=== PATIENT | male | born 2000 | race Caucasian/White ===

== ENCOUNTER 2023-11-10 10:28 | Outpatient (OUT) | payer BC, SELFPAY ==
[2023-11-10 11:01] LABS: Basophils Percent Auto 0.4 % (0.2-2.0); Eosinophils Absolute Auto 0.1 10^3/uL (0.0-0.7); Eosinophils Percent Auto 1.2 % (0.9-7.0); Hematocrit 42.2 % (42.0-54.0); Hemoglobin 13.6 g/dL (14.0-18.0); Immature Granulocytes Abs Auto 0.01 10^3/uL (0.00-0.03); Immature Granulocytes Pct Auto 0.2 % (0.0-0.5); Lymphocytes Absolute Auto 1.7 10^3/uL (1.2-3.8); Lymphocytes Percent Auto 30.8 % (20.5-60.0); Mean Corpuscular HGB Conc 32.2 g/dL (29.9-35.2); Mean Corpuscular Volume 93.2 fL (80.0-94.0); Mean Platelet Volume 9.7 fL (9.5-13.5); Monocytes Absolute Auto 0.5 10^3/uL (0.3-0.8); Monocytes Percent Auto 8.9 % (1.7-12.0); Neutrophils Absolute Auto 3.3 10^3/uL (1.4-6.5); Neutrophils Percent Auto 58.5 % (43.0-75.0); Platelet Count 285 10^3/uL (150-450); Red Blood Count 4.53 10^6/uL (4.70-6.10); Red Cell Distribution Width 12.4 % (11.0-15.0); White Blood Count 5.6 10^3/uL (4.0-11.0)
[2023-11-10 12:09] LABS: Anion Gap 11.5; BUN Creatinine Ratio 16.5; Calcium 8.9 mg/dL (8.5-10.1); Carbon Dioxide 27.9 mmol/L (21.0-32.0); Chloride 104 mmol/L (98-107); Estimated GFR (African America >60 (>=60); Estimated GFR (Non-African Ame >60 (>=60); Glucose 92 mg/dL (74-106); Potassium 4.4 mmol/L (3.5-5.1); Sodium 139 mmol/L (136-145); Thyroid Stimulating Hormone 0.936 uIU/mL (0.358-3.740)
== END 2023-11-10 10:29 | disposition home or self-care (01) ==
LOC: LAB 10:35
PROVIDERS: PCP Family Medicine; Visit Provider Family Medicine
DX: R53.83 Other fatigue (principal)
CPT/HCPCS: 36415; 80048; 84443; 85025

== ENCOUNTER 2024-10-26 10:43 | Outpatient (OUT) | payer BC, SELFPAY ==
[2024-10-26 11:49] LABS: Basophils Absolute Auto 0.1 10^3/uL (0.0-0.1); Basophils Percent Auto 0.5 % (0.2-2.0); Eosinophils Absolute Auto 0.1 10^3/uL (0.0-0.7); Hematocrit 46.6 % (42.0-54.0); Hemoglobin 15.4 g/dL (14.0-18.0); Immature Granulocytes Abs Auto 0.04 10^3/uL (0.00-0.03); Immature Granulocytes Pct Auto 0.4 % (0.0-0.5); Lymphocytes Absolute Auto 2.5 10^3/uL (1.2-3.8); Lymphocytes Percent Auto 25.3 % (20.5-60.0); Mean Corpuscular Hemoglobin 30.3 pg (25.9-34.0); Mean Corpuscular Volume 91.6 fL (80.0-94.0); Mean Platelet Volume 9.8 fL (9.5-13.5); Monocytes Absolute Auto 0.9 10^3/uL (0.3-0.8); Monocytes Percent Auto 8.7 % (1.7-12.0); Neutrophils Absolute Auto 6.3 10^3/uL (1.4-6.5); Neutrophils Percent Auto 64.1 % (43.0-75.0); Platelet Count 326 10^3/uL (150-450); Red Blood Count 5.09 10^6/uL (4.70-6.10); Red Cell Distribution Width 12.6 % (11.0-15.0); White Blood Count 9.8 10^3/uL (4.0-11.0)
[2024-10-26 12:35] LABS: Anion Gap 13.4; BUN Creatinine Ratio 11.4; Calcium 9.1 mg/dL (8.5-10.1); Carbon Dioxide 29.2 mmol/L (21.0-32.0); Chloride 102 mmol/L (98-107); Estimated GFR (African America >60 (>=60 mL/min/1.73m^2); Estimated GFR (Non-African Ame >60 (>=60 mL/min/1.73m^2); Glucose 96 mg/dL (74-106); Potassium 4.6 mmol/L (3.5-5.1); Sodium 140 mmol/L (136-145); TSH W/ REFLEX FT4 1.273 uIU/mL (0.358-3.740)
== END 2024-10-26 10:44 | disposition home or self-care (01) ==
PROVIDERS: PCP Family Medicine; Visit Provider Family Medicine
DX: Z00.00 Encounter for general adult medical examination without abnormal findings (principal); R53.83 Other fatigue
CPT/HCPCS: 36415; 80048; 84443; 85025

== ENCOUNTER 2025-02-15 10:31 | Outpatient (OUT) | payer BC, SELFPAY ==
[2025-02-15 11:01] LABS: Hematocrit 45.5 % (42.0-54.0); Hemoglobin 15.3 g/dL (14.0-18.0); Immature Granulocytes Abs Auto 0.01 10^3/uL (0.00-0.03); Immature Granulocytes Pct Auto 0.2 % (0.0-0.5); Lymphocytes Absolute Auto 1.7 10^3/uL (1.2-3.8); Mean Corpuscular HGB Conc 33.6 g/dL (29.9-35.2); Mean Corpuscular Hemoglobin 30.7 pg (25.9-34.0); Mean Corpuscular Volume 91.2 fL (80.0-94.0); Platelet Count 269 10^3/uL (150-450); Red Blood Count 4.99 10^6/uL (4.70-6.10); White Blood Count 6.4 10^3/uL (4.0-11.0)
[2025-02-15 11:31] LABS: Anion Gap 9.4; Blood Urea Nitrogen 14.0 mg/dL (7.0-18.0); Calcium 9.2 mg/dL (8.5-10.1); Carbon Dioxide 32.8 mmol/L (21.0-32.0); Chloride 105 mmol/L (98-107); Estimated GFR (African America >60 (>=60 mL/min/1.73m^2); Estimated GFR (Non-African Ame >60 (>=60 mL/min/1.73m^2); Glucose 102 mg/dL (74-106); Potassium 4.2 mmol/L (3.5-5.1); Sodium 143 mmol/L (136-145); TSH W/ REFLEX FT4 1.861 uIU/mL (0.358-3.740)
== END 2025-02-15 10:32 | disposition home or self-care (01) ==
LOC: LAB 10:33
PROVIDERS: PCP Family Medicine; Visit Provider Family Medicine
DX: R53.83 Other fatigue (principal)
CPT/HCPCS: 36415; 80048; 84402; 84403; 84443; 85025

== ENCOUNTER 2025-03-02 13:38 | Emergency (ER) | payer BC, SELFPAY ==
[2025-03-02] VITALS (19 sets, daily range): BP systolic 112–141; BP diastolic 70–87; PULSE 62–93; TEMP 36.8; O2SAT 97–100; BMI 35.4
--- NOTE | 2025-03-02 14:03 | ED.GENADUL1 ---
HPI HPI - General Adult General Chief complaint: Weakness Stated complaint: FAST HEART RATE Time Seen by Provider: 03/02/25 13:47 Source: patient and family (mother) Mode of arrival: walk-in Limitations: no limitations History of Present Illness HPI narrative: 24-year-old male presents to the emergency department with mother with complaint of left lower chest/rib discomfort, shortness of breath, fatigue and malaise. Majority of symptoms onset this past Friday. Today, while at work, bent over to cotton picker something, became near syncopal, felt like his heart was racing. Mother believes he has long-term COVID due to decreased sense of smell. He has had some recent congestion, yellow nasal drainage. Denies headache, known fevers. No modifying factors association with the chest pain. Currently denies any. Denies any recent travel, cigarette smoking, lower extremity swelling or pain. Quality:?as above Severity:?moderate Timing:?as above Context: Normal setting and activity? Modifying factors:?none Associated symptoms: as above Related Data Previous Rx's ?Medication ?Instructions ?Recorded ibuprofen 600 mg tablet 600 mg PO Q8H PRN pain #20 tabs 03/02/25 tizanidine 4 mg capsule 4 mg PO BID PRN spasm #14 caps 03/02/25 Allergies Allergy/AdvReac Type Severity Reaction Status Date / Time No Known Drug Allergies Allergy Verified 03/02/25 13:52 Opioid HPI Opioid Management Most Recent Opioid Data: Last Pain Scale 4 Today, 13:45 Review of Systems ROS Narrative CONST: +fatigue. Denies fever, chills HENT: + nasal drainage. Denies congestion, sore throat RESP: + shortness of breath. Denies cough CV: + chest pain, heart racing today GI: Denies abd pain, nausea, vomiting MS: Denies back pain, myalgias SKIN: Denies color change, rash NEURO: Denies numbness, weakness PSYCHIATRIC: Denies confusion PFSH PFSH Social History Little interest or pleasure in doing things: not at all Feeling down, depressed, or hopeless: not at all Exam Narrative Exam Narrative: Vital signs reviewed Nurses notes noted CONST: Nontoxic, well appearing, well nourished, in no distress.? No diaphoresis.?? HENT: normocephalic, atraumatic, moist mucous membrane, no abnormalities of the nose noted, hearing normal EYES: normal appearing conjunctiva, no apparent discharge bilat NECK: normal appearance CV: normal rate, regular rhythm, no murmur RESP: normal effort, speaking in complete sentences. Lung sounds clear and equal bilat.? No wheezes, rales, rhonchi GI: soft, no distension, nontender : no CVA tenderness MS: no edema, tenderness SKIN: no pallor NEURO: A&Ox 3, no focal findings PSYCH: normal mood, affect Constitutional Vital Signs, click to edit/add: Last Vital Signs Temp 98.3 F 03/02/25 13:45 Pulse 71 03/02/25 16:20 Resp 18 03/02/25 16:20 BP 138/87 03/02/25 16:20 Pulse Ox 99 03/02/25 16:20 O2 Del Method Room Air 03/02/25 16:20 Course Vital Signs Vital signs: Vital Signs Temperature 98.3 F 03/02/25 13:45 Pulse Rate 80 03/02/25 13:45 Respiratory Rate 18 03/02/25 13:45 Blood Pressure 132/72 03/02/25 13:45 Pulse Oximetry 99 03/02/25 13:45 Oxygen Delivery Method Room Air 03/02/25 13:45 Temperature 98.3 F 03/02/25 13:45 Pulse Rate 71 03/02/25 16:20 Respiratory Rate 18 03/02/25 16:20 Blood Pressure 138/87 03/02/25 16:20 Pulse Oximetry 99 03/02/25 16:20 Oxygen Delivery Method Room Air 03/02/25 16:20 Medical Decision Making [facility] Narrative Medical decision making narrative: This is a pleasant 24-year-old male who presents to the emergency department for evaluation of left lower chest discomfort, shortness of breath, weakness, fatigue since this past Friday. On arrival, afebrile, vital signs are stable Exam, nontoxic, well appearing patient in no distress. Heart regular rate and rhythm. Lung sounds clear equal bilaterally. No chest wall tenderness. No abdominal tenderness. Patient speaking in complete sentences. No conversational dyspnea. No peripheral edema EKG reveals no acute or concerning changes. Labs reveal no leukocytosis, anemia or thrombus of electrolyte levels, renal impairment. Glucose 88. LFTs, magnesium, lipase unremarkable. D-dimer was only 0.2 next line hide sensitive troponin was 5.2 COVID, influenza, monoscreen was negative Chest x-ray imaging, per radiologist reveals no acute or concerning findings Favor chest pain, nonspecific, shortness of breath, general weakness ACS less likely based on EKG and biomarker. Has been having symptoms since Friday. PE less likely based on negative D-dimer Pneumonia less likely based on x-ray If electrolyte imbalance less likely based on labs History and Record Review Discussion with independent historian: Mother Management Independent interpretation:Cxr: NAD Additional Tests and Interventions ECG:see course below Diagnostic testing considered but not performed:CT. Neg d-dimer. Not hypoxic, tachy During ED course, patient given Toradol and Norflex Disposition ? The patient was discharged. Prescriptions sent to pharmacy:motrin, tizanidine Plan: Patient will be discharged to home.? Condition at time of disposition: stable.? Advised to follow up with primary provider. Advised to return for any worsening and/or development of new, concerning signs or symptoms PLEASE NOTE: Portions of the medical record may have been produced using electronic customer technical services manager and may contain errors with respect to translation of words which may not have been identified prior to finalization of the chart. Medical Records Medical records reviewed: Yes I reviewed the patient's medical records Lab Data Lab results reviewed: Yes I reviewed the patient's lab results Labs: Lab Results 03/02/25 03/02/25 03/02/25 Range/Units 14:11 14:24 14:27 WBC 7.8 (4.0-11.0) 10^3/uL RBC 4.66 L (4.70-6.10) 10^6/uL Hgb 14.5 (14.0-18.0) g/dL Hct 42.5 (42.0-54.0) % MCV 91.2 (80.0-94.0) fL MCH 31.1 (25.9-34.0) pg MCHC 34.1 (29.9-35.2) g/dL RDW 12.8 (11.0-15.0) % Plt Count 256 (150-450) 10^3/uL MPV 10.2 (9.5-13.5) fL Neut % (Auto) 65.9 (43.0-75.0) % Lymph % (Auto) 23.9 (20.5-60.0) % [place] % (Auto) 8.7 (1.7-12.0) % Eos % (Auto) 0.8 L (0.9-7.0) % Baso % (Auto) 0.4 (0.2-2.0) % Neut # (Auto) 5.2 (1.4-6.5) 10^3/uL Lymph # (Auto) 1.9 (1.2-3.8) 10^3/uL [place] # (Auto) 0.7 (0.3-0.8) 10^3/uL Eos # (Auto) 0.1 (0.0-0.7) 10^3/uL Baso # (Auto) 0.0 (0.0-0.1) 10^3/uL Abs Immat Gran (auto) 0.02 (0.00-0.03) 10^3/uL Imm/Tot Granulo (auto) 0.3 (0.0-0.5) % D-Dimer (<=0.59) mg/L FEU Sodium 141 (136-145) mmol/L Potassium 4.1 (3.5-5.1) mmol/L Chloride 104 (98-107) mmol/L Carbon Dioxide 26.3 (21.0-32.0) mmol/L Anion Gap 14.8 BUN 14.0 (7.0-18.0) mg/dL Creatinine 0.98 (0.70-1.30) mg/dL Est GFR ( Amer) >60 (>=60 mL/min/1.73m^2) Est GFR (Non-Af Amer) >60 (>=60 mL/min/1.73m^2) BUN/Creatinine Ratio 14.3 Glucose 88 (74-106) mg/dL Calcium 9.0 (8.5-10.1) mg/dL Magnesium 2.2 (1.8-2.4) mg/dL Total Bilirubin 0.4 (0.2-1.0) mg/dL AST 34 (15-37) U/L ALT 41 (16-63) U/L Alkaline Phosphatase 64 (46-116) U/L Troponin I High Sens 5.2 (4.0-76.1) pg/mL Total Protein 7.8 (6.4-8.2) g/dL Albumin 4.2 (3.4-5.0) g/dL Globulin 3.6 g/dL Albumin/Globulin Ratio 1.2 Lipase 26.0 (16.0-77.0) U/L Monoscreen Negative (NEGATIVE) Influenza Type A Ag Negative Influenza Type B Ag Negative SARS-CoV-2 Ag (CV2AG) Negative (NEGATIVE) 03/02/25 Range/Units 15:09 WBC (4.0-11.0) 10^3/uL RBC (4.70-6.10) 10^6/uL Hgb (14.0-18.0) g/dL Hct (42.0-54.0) % MCV (80.0-94.0) fL MCH (25.9-34.0) pg MCHC (29.9-35.2) g/dL RDW (11.0-15.0) % Plt Count (150-450) 10^3/uL MPV (9.5-13.5) fL Neut % (Auto) (43.0-75.0) % Lymph % (Auto) (20.5-60.0) % [place] % (Auto) (1.7-12.0) % Eos % (Auto) (0.9-7.0) % Baso % (Auto) (0.2-2.0) % Neut # (Auto) (1.4-6.5) 10^3/uL Lymph # (Auto) (1.2-3.8) 10^3/uL [place] # (Auto) (0.3-0.8) 10^3/uL Eos # (Auto) (0.0-0.7) 10^3/uL Baso # (Auto) (0.0-0.1) 10^3/uL Abs Immat Gran (auto) (0.00-0.03) 10^3/uL Imm/Tot Granulo (auto) (0.0-0.5) % D-Dimer 0.20 (<=0.59) mg/L FEU Sodium (136-145) mmol/L Potassium (3.5-5.1) mmol/L Chloride (98-107) mmol/L Carbon Dioxide (21.0-32.0) mmol/L Anion Gap BUN (7.0-18.0) mg/dL Creatinine (0.70-1.30) mg/dL Est GFR ( Amer) (>=60 mL/min/1.73m^2) Est GFR (Non-Af Amer) (>=60 mL/min/1.73m^2) BUN/Creatinine Ratio Glucose (74-106) mg/dL Calcium (8.5-10.1) mg/dL Magnesium (1.8-2.4) mg/dL Total Bilirubin (0.2-1.0) mg/dL AST (15-37) U/L ALT (16-63) U/L Alkaline Phosphatase (46-116) U/L Troponin I High Sens (4.0-76.1) pg/mL Total Protein (6.4-8.2) g/dL Albumin (3.4-5.0) g/dL Globulin g/dL Albumin/Globulin Ratio Lipase (16.0-77.0) U/L Monoscreen (NEGATIVE) Influenza Type A Ag Influenza Type B Ag SARS-CoV-2 Ag (CV2AG) (NEGATIVE) Imaging Data Chest x-ray: Radiologist's impression: ITS Impressions Chest X-Ray 03/02/25 14:04 IMPRESSION: NEGATIVE CHEST. Impression dictated by: Johnny Paul Jr., D.O. 03/02/2025 2:55 PM Dictation Location: [place] [address] Electronically authenticated by: [id number] Y Date: 03/02/2025 14:55 ECG Data Interpretation: EKG performed at 1353 hrs. reveals sinus rhythm at 83 bpm. No STEMI, ischemia, ectopy, or other. Changes noted. Discharge Plan Discharge Chief Complaint: Weakness Clinical Impression: Breath shortness, Malaise and fatigue Chest pain Qualifiers: Chest pain type: unspecified Qualified Code(s): R07.9 - Chest pain, unspecified Patient Disposition: Home, Self-Care Time of Disposition Decision: 16:14 Condition: Good Mode of Transportation: Private Vehicle Prescriptions / Home Meds: New ibuprofen 600 mg tablet 600 mg PO Q8H PRN (Reason: pain) Qty: 20 0RF tizanidine 4 mg capsule 4 mg PO BID PRN (Reason: spasm) Qty: 14 0RF Print Language: Ukrainian Instructions: Chest Pain (ED), Weakness (ED), Shortness of Breath (ED) Referrals: Zaynab Fontana MD [Primary Care Provider, Family Practice] - 1 week Discharge Date/Time: 03/02/25 16:20
--- NOTE | 2025-03-02 14:04 | XR_ITS ---
The [place] [id number] Patient Name: FRANCISCA BERRIOS MRN: [id number] date: 2000 Sex: M Assigned Patient Location: ER Current Patient Location: ER Accession/Order Number: [id number] Exam Date: 03/02/2025 14:49 Report Date: 03/02/2025 14:55 At the request of: FREIDA TOMAS Procedure: XR chest 1V Single view chest: CLINICAL HISTORY: chest pain COMPARISON: None FINDINGS: The heart is normal in size. The lungs are clear. The pulmonary vasculature is normal. Mediastinum and hilar regions are unremarkable. No pleural effusions are seen. Visualized bones are intact. XR/XR chest 1V IMPRESSION: NEGATIVE CHEST. Impression dictated by: Johnny Paul Jr., D.O. 03/02/2025 2:55 PM Dictation Location: [place] [address] Electronically authenticated by: [id number] Y Date: 03/02/2025 14:55
--- NOTE | 2025-03-02 14:04 | ECG_ITS ---
[facility] Test Date: 2025-03-02 Pat Name: FRANCISCA BERRIOS Department: Room: - Gender: Male Demo Coordinator: : 2000 Requested By: JEANETTE BRANDT Order Number: [id number] [place] MD: JAIME NEGRON M.D. Measurements Intervals [place] Rate: 83 P: 52 CA: 174 QRS: 41 QRSD: 98 T: 61 QT: 330 QTc: 370 Interpretive Statements 1100 Sinus rhythm 9110 normal ECG No previous ECG available for comparison Electronically Signed On 03-02-2025 22:03:19 EDT by JAIME NEGRON M.D.
[2025-03-02] MEDS: 0.9 % SODIUM CHLORIDE 1,000 ML 999 ML IV (14:31)
[2025-03-02] MEDS: KETOROLAC TROMETHAMINE 30 MG/ML VIAL 15 MG IVP (14:32)
[2025-03-02 14:51] LABS: Hematocrit 42.5 % (42.0-54.0); Hemoglobin 14.5 g/dL (14.0-18.0); Immature Granulocytes Abs Auto 0.02 10^3/uL (0.00-0.03); Immature Granulocytes Pct Auto 0.3 % (0.0-0.5); Lymphocytes Absolute Auto 1.9 10^3/uL (1.2-3.8); Mean Corpuscular HGB Conc 34.1 g/dL (29.9-35.2); Mean Corpuscular Hemoglobin 31.1 pg (25.9-34.0); Mean Corpuscular Volume 91.2 fL (80.0-94.0); Platelet Count 256 10^3/uL (150-450); Red Blood Count 4.66 10^6/uL (4.70-6.10); White Blood Count 7.8 10^3/uL (4.0-11.0)
[2025-03-02 15:05] LABS: Alanine Aminotransferase 41 U/L (16-63); Albumin Globulin Ratio 1.2; Albumin Level 4.2 g/dL (3.4-5.0); Alkaline Phosphatase 64 U/L (46-116); Anion Gap 14.8; Aspartate Amino Transferase 34 U/L (15-37); Blood Urea Nitrogen 14.0 mg/dL (7.0-18.0); Calcium 9.0 mg/dL (8.5-10.1); Carbon Dioxide 26.3 mmol/L (21.0-32.0); Chloride 104 mmol/L (98-107); Estimated GFR (African America >60 (>=60 mL/min/1.73m^2); Estimated GFR (Non-African Ame >60 (>=60 mL/min/1.73m^2); Globulin 3.6 g/dL; Glucose 88 mg/dL (74-106); Potassium 4.1 mmol/L (3.5-5.1); Sodium 141 mmol/L (136-145); Total Protein 7.8 g/dL (6.4-8.2)
[2025-03-02 15:07] LABS: SARS-CoV-2 Ag NEGATIVE (NEGATIVE)
[2025-03-02 15:07] LABS: Lipase 26.0 U/L (16.0-77.0); Magnesium 2.2 mg/dL (1.8-2.4)
[2025-03-02 15:09] LABS: Mono Screen NEGATIVE (NEGATIVE)
[2025-03-02] MEDS: ORPHENADRINE 60 MG/2 ML VIAL IV (16:14)
== END 2025-03-02 16:20 | disposition home or self-care (01) ==
PROVIDERS: Physician Assistant; Emergency Provider Emergency Medicine; PCP Family Medicine
DX: R06.02 Shortness of breath (principal); R53.83 Other fatigue; R53.81 Other malaise
CPT/HCPCS: 36415; 71045; 80053; 83690; 83735; 84484; 85025; 85378; 86308; 87804; 87811; 93005; 96361; 96374; 96375; 99285; J1885; J2360